=== PATIENT | male | born 1990 | race Caucasian/White ===

== ENCOUNTER 2017-12-13 02:37 | Outpatient (CLI) | payer BC | END 2017-12-13 23:59 | disposition home or self-care (01) | LOC: DIABETIC 02:37 | PROVIDERS: ATTEND Specialist | DX: E10.9 Type 1 diabetes mellitus without complications (principal) | CPT/HCPCS: G0108 ==

== ENCOUNTER 2018-01-11 01:54 | Outpatient (CLI) | payer BC | END 2018-01-11 23:59 | disposition home or self-care (01) | LOC: DIABETIC 01:54 | PROVIDERS: ATTEND Specialist | DX: E10.65 Type 1 diabetes mellitus with hyperglycemia (principal) | CPT/HCPCS: G0108 ==

== ENCOUNTER 2018-04-16 00:51 | Outpatient (CLI) | payer BC | END 2018-04-16 23:59 | disposition home or self-care (01) | LOC: DIABETIC 00:51 | PROVIDERS: ATTEND Specialist | DX: E10.65 Type 1 diabetes mellitus with hyperglycemia (principal) | CPT/HCPCS: G0108 ==

== ENCOUNTER 2019-06-19 14:32 | Emergency (ER) | payer BC ==
[~2019-06-19] VITALS: Ht 175.3 cm; Wt 104.0 kg
[2019-06-19 14:42] VITALS: BP 125/63
[2019-06-19] MEDS ORDERED: DOXYCYCLINE 100MG CAPSULE PO STA (15:31)
[2019-06-19] MEDS ORDERED: LIDOcaine 1% W/epiNEPHrine 1:200,000 10ml vial IJ ONE ×2 (15:35)
[2019-06-19] MEDS ORDERED: IBUP-1984 PO (15:38)
[2019-06-19] MEDS ORDERED: DOXY100C76 PO (15:38)
[2019-06-19] MEDS ORDERED: CIPR-259 PO (16:43)
[2019-06-19] MEDS ORDERED: METR500T PO (16:43)
== END 2019-06-19 17:01 | disposition home or self-care (01) ==
LOC: ER 14:33
DX: L03.315 Cellulitis of perineum (principal); E10.9 Type 1 diabetes mellitus without complications; Z79.899 Other long term (current) drug therapy
CPT/HCPCS: 99284

== ENCOUNTER 2019-07-02 03:38 | Inpatient (IN) | payer BC ==
[~2019-07-02] VITALS: Ht 177.8 cm; Wt 104.0 kg
[2019-07-02] MEDS ORDERED: normal saline 1000ml 1,000 ML IVB ONE (03:49)
[2019-07-02] MEDS ORDERED: NPH, human insulin isophane inj. SQ SCH (03:50)
[2019-07-02] MEDS ORDERED: insulin regular, human U-100 3ml vial - multi-dose SQ ONE (04:00)
[2019-07-02] MEDS ORDERED: insulin regular, human 10 units/0.1 ml syringe SQ ONE (04:00)
[2019-07-02] MEDS ORDERED: ondansetron/PF 4mg/2ml inj IV ONE (04:05)
[2019-07-02 04:14] LABS: BASOPHILS # (AUTO) 0.3 X10'3 (0-0.2); BASOPHILS % (AUTO) 1.3 % (0-1); EOSINOPHILS % (AUTO) 0.1 % (0-6); HEMOGLOBIN 16.6 g/dl (14.0-17.9); LYMPHOCYTES # (AUTO) 0.8 X10'3 (1.1-4.8); LYMPHOCYTES % (AUTO) 3.2 % (21-51); MEAN CORPUSCULAR HEMOGLOBIN 30.1 PG (27.0-31.0); MEAN CORPUSCULAR HGB CONC 33.9 g/dL (33.0-36.5); MEAN CORPUSCULAR VOLUME 88.8 FL (78-98); MEAN PLATELET VOLUME 8.2 FL (7.4-10.4); MONOCYTES # (AUTO) 0.7 X10'3 (0-0.9); MONOCYTES % (AUTO) 2.8 % (2-12); NEUTROPHILS % (AUTO) 92.6 % (42-75); PLATELET COUNT 496 X10'3 (140-440); RED BLOOD COUNT 5.52 X10'6 (4.70-6.10); RED CELL DISTRIBUTION WIDTH 13.3 % (11.5-14.5)
[2019-07-02 04:16] LABS: ABG BASE EXCESS -23.8 mmol/L (-2.0-3.0); ABG HCO3 4.2 mmol/L (22.0-26.0); ABG PCO2 (T) 14.5 mmHg (35.0-45.0); ABG PH (T) 7.078 (7.350-7.450); ABG PO2 (T) 121.6 mmHg (83-108); FCOHb 0.4 % (0.5-1.5); FMetHb 0.4 % (0.3-1.12); FO2Hb 97.2 % (94-100); PATIENT TEMPERATURE 36.7; TOTAL HEMOGLOBIN 15.1 G/dl (14.0-17.9)
[2019-07-02 04:21] LABS: PARTIAL THROMBOPLASTIN TIME 26 SECONDS (22-32)
[2019-07-02 04:23] LABS: WHITE BLOOD COUNT 25.9 X10'3 (4.5-11.0)
[2019-07-02] MEDS ORDERED: INSU100V11 SQ (04:24)
[2019-07-02] MEDS ORDERED: Insulin Reg/NS 100units/100mL 100 ML IV SCH (04:26)
[2019-07-02] MEDS ORDERED: potassium CL 20mEq in D5-1/2NS 1,000 ML IV PRN (04:26)
[2019-07-02] MEDS ORDERED: sodium bicarbonate (8.4%) inj. 100 MEQ in dextrose 5% water 500ml 500 ML IV PRN ×2 (04:26→06:07)
[2019-07-02] MEDS ORDERED: sodium bicarbonate (8.4%) inj. 50 MEQ in dextrose 5% water 500ml 250 ML IV PRN ×3 (04:26→06:07)
[2019-07-02] MEDS ORDERED: normal saline 1000ml 1,000 ML IV SCH ×2 (04:26→06:07)
[2019-07-02] MEDS ORDERED: potassium Cl 20 mEq SR tablet PO PRN ×7 (04:30→06:10)
[2019-07-02] MEDS ORDERED: potassium CL 10mEq/100ml bag 100 ML IV PRN ×6 (04:30→06:10)
[2019-07-02] MEDS ORDERED: insulin regular, human U-100 3ml vial - multi-dose IV PRN ×3 (04:30→06:10)
[2019-07-02] MEDS ORDERED: Neutra Phos packet PO PRN ×2 (04:30→04:45)
[2019-07-02] MEDS ORDERED: sodium phosphate inj. 15 MMOL in dextrose 5%-water 250 ML IV PRN ×3 (04:30→06:10)
[2019-07-02] MEDS ORDERED: sodium phosphate inj. 30 MMOL in dextrose 5%-water 250 ML IV PRN ×3 (04:30→06:10)
[2019-07-02 04:33] LABS: ALANINE AMINOTRANSFERASE 37 U/L (12-78); ALBUMIN 4.3 G/DL (3.4-5.0); ALKALINE PHOSPHATASE 115 IU/L (46-116); ANION GAP 31 (8-16); ASPARTATE AMINO TRANSFERASE 19 U/L (10-37); BILIRUBIN,TOTAL 0.8 MG/DL (0.1-1.0); BLOOD UREA NITROGEN 19 MG/DL (7-18); BUN/CREATININE RATIO 10.6 (5.4-32.0); CALCIUM 9.2 MG/DL (8.5-10.1); CHLORIDE 94 MMOL/L (99-107); CREATININE 1.79 MG/DL (0.60-1.10); POTASSIUM 5.3 MMOL/L (3.5-5.1); SODIUM 132 MMOL/L (135-145); TOTAL PROTEIN 8.5 G/DL (6.4-8.2); eGFR 45 ML/MIN
[2019-07-02 04:38] LABS: ETHANOL < 0.010 GM/DL (0.0-0.010); GLUCOSE 539 MG/DL (70-104); TOTAL CARBON DIOXIDE 6.9 MMOL/L (24-32)
[2019-07-02] MEDS ORDERED: proCHLORperazine 10 MG/2 ml inj IV ONE (04:45)
[2019-07-02 04:51] LABS: TOTAL CELLS COUNTED 100
[2019-07-02 04:53] LABS: PLATELET ESTIMATE INCREASED
[2019-07-02] MEDS: normal saline 1000ml 1,000 ML IV SCH ×2 (06:07→06:37)
[2019-07-02] MEDS: Insulin Reg/NS 100units/100mL 100 ML IV SCH ×2 (06:07→20:30)
[2019-07-02] MEDS ORDERED: magnesium 2GM in 50ml NS 50 ML IV PRN (06:10)
[2019-07-02] MEDS ORDERED: acetaminophen 325mg tablet PO PRN (06:10)
[2019-07-02] MEDS ORDERED: magnesium Cl slow-release 64mg tablet PO PRN (06:10)
[2019-07-02] MEDS ORDERED: magnesium 4gm in 100ml NS 100 ML IV PRN (06:10)
[2019-07-02] MEDS ORDERED: HYDROcodone/acetaminophen 5mg/325mg tablet PO PRN (06:10)
[2019-07-02] MEDS ORDERED: magnesium hydroxide 30ml (MOM) UD suspension PO PRN (06:10)
[2019-07-02] MEDS ORDERED: morphine 2 MG/ML inj. syringe IV PRN (06:10)
[2019-07-02] MEDS ORDERED: ondansetron/PF 4mg/2ml inj IV PRN (06:10)
[2019-07-02] MEDS ORDERED: mag hydrox/Alum hydrox/simeth 30ml oral suspension PO PRN (06:10)
[2019-07-02 06:16] LABS: COLOR,URINE YELLOW (Yellow); GLUCOSE, URINE >=1000 mg/dl (Neg); KETONES,URINE >=80 mg/dl (Neg); LEUKOCYTE ESTERASE ,URINE NEGATIVE (Neg); NITRITES, URINE NEGATIVE (Neg); OCCULT BLOOD,URINE SMALL (Neg); PH,URINE 5.5 (4.8-8.0); PROTEIN,URINE TRACE mg/dl (Neg); UROBILINOGEN,URINE 0.2 E.U/dL (0.2-1.0)
[2019-07-02 06:25] LABS: ALBUMIN 3.6 G/DL (3.4-5.0); BLOOD UREA NITROGEN 19 MG/DL (7-18); BUN/CREATININE RATIO 13.6 (5.4-32.0); CALCIUM 7.8 MG/DL (8.5-10.1); CHLORIDE 103 MMOL/L (99-107); GLUCOSE 413 MG/DL (70-104); PHOSPHORUS 3.9 MG/DL (2.3-4.5); POTASSIUM 5.3 MMOL/L (3.5-5.1); SODIUM 138 MMOL/L (135-145); eGFR 60 ML/MIN
[2019-07-02 06:29] LABS: ANION GAP 30 (8-16)
--- NOTE | 2019-07-02 06:29 | NUR ---
sbar to raul rn no questions or concerns after assuming care
[2019-07-02 06:30] LABS: TOTAL CARBON DIOXIDE < 5 MMOL/L (24-32)
--- NOTE | 2019-07-02 06:30 | NUR ---
Milad lennon in EDM - 07/02/19 at 0712 by GREGG Myxredlin 100 running as ordered @ q20h; Admit order dose scanned against running dose, started in ED.
--- NOTE | 2019-07-02 06:31 | NUR ---
Myxredlin 100 running as ordered @ q20h; Unable to scan Admit order dose to clear Emar against running dose, started in ED.
[2019-07-02 06:34] LABS: CLARITY,URINE SLIGHTLY CLOUDY (Clear); UA COLLECTION TYPE CLN CATCH MIDSTREAM
[2019-07-02 06:38] LABS: BACTERIA,URINE NONE SEEN /HPF (Neg); RBC,URINE NONE SEEN /HPF (0-2); SQUAMOUS EPITHELIAL CELL,UR NONE SEEN /LPF (FEW); WBC,URINE NONE SEEN /HPF (0-4)
--- NOTE | 2019-07-02 06:51 | NUR ---
belongings: glasses (w/ label on arm band), slippers, shorts, undies, shirt, cell phone (only). Insulin pump in place (turned off prior to assumption of care).
--- NOTE | 2019-07-02 07:30 | NUR ---
Assumed care of patient. Patient resting in bed comfortable. No needs at this time. Insulin drip infusing at 5units/hr and NS infusing at 250ml/hr. Patient's FSBG 309.
[2019-07-02 08:00] LABS: ABG BASE EXCESS -23.5 mmol/L (-2.0-3.0); ABG OXYGEN SATURATION 98.2 % (95-98); ABG PCO2 (T) 13.1 mmHg (35.0-45.0); ABG PH (T) 7.097 (7.350-7.450); ABG PO2 (T) 117.5 mmHg (83-108); ALLEN'S TEST POSITIVE; FCOHb 0.4 % (0.5-1.5); FMetHb 0.4 % (0.3-1.12); FO2Hb 97.4 % (94-100); PATIENT TEMPERATURE 36.7; TOTAL HEMOGLOBIN 15.2 G/dl (14.0-17.9)
[2019-07-02] MEDS: K and/or MAG REPLACEMENT MC SCH ×2 (08:00→20:00)
[2019-07-02] MEDS ORDERED: K and/or MAG REPLACEMENT MC SCH ×2 (08:00)
[2019-07-02] MEDS: enoxaparin 40mg/0.4ml syringe SUBCUT SCH (08:00)
[2019-07-02 09:49] LABS: ALBUMIN 3.6 G/DL (3.4-5.0); ANION GAP 24 (8-16); BLOOD UREA NITROGEN 17 MG/DL (7-18); BUN/CREATININE RATIO 12.1 (5.4-32.0); CALCIUM 7.9 MG/DL (8.5-10.1); CHLORIDE 107 MMOL/L (99-107); CREATININE 1.41 MG/DL (0.60-1.10); GLUCOSE 248 MG/DL (70-104); PHOSPHORUS 1.9 MG/DL (2.3-4.5); POTASSIUM 4.4 MMOL/L (3.5-5.1); SODIUM 138 MMOL/L (135-145); eGFR 59 ML/MIN
--- NOTE | 2019-07-02 09:51 | NUR ---
Critical lab: CO2 7.1. Notified primary VICKI Urban.
[2019-07-02 09:52] LABS: TOTAL CARBON DIOXIDE 7.1 MMOL/L (24-32)
[2019-07-02 10:16] VITALS: BP 139/63
--- NOTE | 2019-07-02 10:33 | NUR ---
Page sent to Dr. Meraz to notify of critical co2 level. PAGER ID: [phone] MESSAGE: [id number] Héctor Garcia- Critical C02 7.1- Pt is on DKA protocol. Thanks, Rajni farias [phone]
[2019-07-02] MEDS: potassium CL 20mEq in D5-1/2NS 1,000 ML IV PRN ×3 (10:59→23:36)
[2019-07-02 13:51] LABS: ALBUMIN 3.8 G/DL (3.4-5.0); ANION GAP 19 (8-16); BLOOD UREA NITROGEN 13 MG/DL (7-18); CALCIUM 8.2 MG/DL (8.5-10.1); CHLORIDE 108 MMOL/L (99-107); GLUCOSE 201 MG/DL (70-104); SODIUM 140 MMOL/L (135-145); eGFR 65 ML/MIN
[2019-07-02 13:53] LABS: TOTAL CARBON DIOXIDE 13.1 MMOL/L (24-32)
--- NOTE | 2019-07-02 13:58 | NUR ---
Page sent to Dr. Meraz regarding critical labs. PAGER ID: [phone] MESSAGE: re [id number] Brandon Garcia: Critical Phos 1.0 and C02 13.1. Pt on DKA protocol. Please advise on phos level. Rajni Clark [phone] Addendum: 07/02/19 at 1519 by Rajni Velez RN order to replace phos PO
[2019-07-02] MEDS: Neutra Phos packet PO PRN ×2 (14:37→22:32)
[2019-07-02 15:00] VITALS: BP 131/68
--- NOTE | 2019-07-02 15:06 | NUR ---
Dr. Meraz notified of open wound to simba rectal area PAGER ID: [phone] MESSAGE: re [phone] Héctor Garcia: FYI Pt has open area to simba/rectal area-possible abscess that opened. line repairer tower already consulted. Thanks, Rajni Rangel [phone]
[2019-07-02] MEDS: piperacillin/tazo 4.5gm/100ml 100 ML IV SCH ×2 (17:00→23:37)
[2019-07-02 17:32] LABS: ALBUMIN 3.3 G/DL (3.4-5.0); ANION GAP 13 (8-16); BLOOD UREA NITROGEN 12 MG/DL (7-18); BUN/CREATININE RATIO 9.4 (5.4-32.0); CHLORIDE 109 MMOL/L (99-107); CREATININE 1.28 MG/DL (0.60-1.10); GLUCOSE 184 MG/DL (70-104); MAGNESIUM 1.8 MG/DL (1.5-2.4); POTASSIUM 3.8 MMOL/L (3.5-5.1); SODIUM 139 MMOL/L (135-145); TOTAL CARBON DIOXIDE 17.2 MMOL/L (24-32); eGFR 66 ML/MIN
--- NOTE | 2019-07-02 17:50 | NUR ---
DM consult, patient h/o type 1 DM for 20 years admitted with DKA, elevated BG of 529 mg/dl, has insulin pump, A1c is 7.9. Per H&P reporting nausea and vomiting for past 24 hours prior to admission. Patient seen at bedside for verbal DM education. Patient was unable to concentrate as was very tired at time of bedside visit. Given written DM education handout with DM survival skills handout along with referral to outpatient DM education class on monday (currently on hold) with contact information. Pt will need DM reinforcement. Recommend: 1. advance diet as medically indicated to carb controlled 2. Weight per rx Addendum: 07/02/19 at [address] Amended: Links added.
[2019-07-02 17:52] LABS: PHOSPHORUS 1.1 MG/DL (2.3-4.5)
--- NOTE | 2019-07-02 17:53 | NUR ---
Critical phos paged to Dr. Meraz. PAGER ID: [phone] MESSAGE: [phone] Héctor Garcia: Critical phos 1.1 (previously 1.0. Currently replacing PO. Thanks, Rajni farias [phone]
[2019-07-02 18:30] VITALS: BP 134/83
--- NOTE | 2019-07-02 18:45 | NUR ---
Problems reprioritized. Patient report given, questions answered & plan of care reviewed with VICKI Curtis.
--- NOTE | 2019-07-02 20:15 | NUR ---
Patient in room PCU 3014. I have received report from Alisa COHEN and had the opportunity to ask questions and assume patient care.
[2019-07-02 22:22] LABS: ALBUMIN 3.2 G/DL (3.4-5.0); ANION GAP 8 (8-16); BLOOD UREA NITROGEN 11 MG/DL (7-18); BUN/CREATININE RATIO 8.7 (5.4-32.0); CALCIUM 8.2 MG/DL (8.5-10.1); CHLORIDE 110 MMOL/L (99-107); CREATININE 1.26 MG/DL (0.60-1.10); GLUCOSE 156 MG/DL (70-104); POTASSIUM 3.8 MMOL/L (3.5-5.1); SODIUM 139 MMOL/L (135-145); TOTAL CARBON DIOXIDE 20.7 MMOL/L (24-32); eGFR 67 ML/MIN
--- NOTE | 2019-07-02 22:33 | NUR ---
Remington RN was at a [facility], received report from lora COHEN and gave report to Remington RN when he arrived
[2019-07-02 22:39] VITALS: BP 146/82
[2019-07-03 01:59] LABS: ALBUMIN 3.1 G/DL (3.4-5.0); ANION GAP 7 (8-16); BLOOD UREA NITROGEN 11 MG/DL (7-18); BUN/CREATININE RATIO 8.7 (5.4-32.0); CALCIUM 8.1 MG/DL (8.5-10.1); CHLORIDE 111 MMOL/L (99-107); CHOL/HDL RATIO 4.4 (0.00-4.99); CHOLESTEROL 157 MG/DL (0-200); CREATININE 1.26 MG/DL (0.60-1.10); GLUCOSE 167 MG/DL (70-104); HDL CHOLESTEROL 36 MG/DL (35-60); LDL CHOLESTEROL 104 MG/DL (50-100); MAGNESIUM 1.8 MG/DL (1.5-2.4); PHOSPHORUS 1.4 MG/DL (2.3-4.5); POTASSIUM 3.4 MMOL/L (3.5-5.1); SODIUM 139 MMOL/L (135-145); TOTAL CARBON DIOXIDE 20.8 MMOL/L (24-32); TRIGLYCERIDES 84 MG/DL (20-135); eGFR 67 ML/MIN
[2019-07-03 02:00] VITALS: BP 150/82
[2019-07-03 02:12] LABS: BASOPHILS # (AUTO) 0.1 X10'3 (0-0.2); EOSINOPHILS % (AUTO) 0.2 % (0-6); HEMATOCRIT 38.5 % (42.0-52.0); HEMOGLOBIN 13.5 g/dl (14.0-17.9); LYMPHOCYTES # (AUTO) 1.9 X10'3 (1.1-4.8); LYMPHOCYTES % (AUTO) 12.8 % (21-51); MEAN CORPUSCULAR HEMOGLOBIN 29.3 PG (27.0-31.0); MEAN CORPUSCULAR HGB CONC 35.1 g/dL (33.0-36.5); MEAN CORPUSCULAR VOLUME 83.4 FL (78-98); MEAN PLATELET VOLUME 7.4 FL (7.4-10.4); MONOCYTES % (AUTO) 6.8 % (2-12); NEUTROPHILS # (AUTO) 11.6 X10'3 (1.8-7.7); NEUTROPHILS % (AUTO) 79.2 % (42-75); PLATELET COUNT 282 X10'3 (140-440); RED BLOOD COUNT 4.62 X10'6 (4.70-6.10); RED CELL DISTRIBUTION WIDTH 13.1 % (11.5-14.5); WHITE BLOOD COUNT 14.7 X10'3 (4.5-11.0)
[2019-07-03] MEDS: potassium CL 20mEq in D5-1/2NS 1,000 ML IV PRN (03:30)
[2019-07-03 06:00] VITALS: BP 135/87
--- NOTE | 2019-07-03 06:00 | NUR ---
Patient in room PCU 3014. I have received report from Remington RN and had the opportunity to ask questions and assume patient care.
--- NOTE | 2019-07-03 06:10 | NUR ---
Problems reprioritized. Patient report given, questions answered & plan of care reviewed with Ruben COHEN.
[2019-07-03 07:23] LABS: ALBUMIN 3.1 G/DL (3.4-5.0); ANION GAP 10 (8-16); BLOOD UREA NITROGEN 9 MG/DL (7-18); BUN/CREATININE RATIO 7.6 (5.4-32.0); CALCIUM 8.3 MG/DL (8.5-10.1); CHLORIDE 110 MMOL/L (99-107); CREATININE 1.19 MG/DL (0.60-1.10); GLUCOSE 189 MG/DL (70-104); POTASSIUM 3.3 MMOL/L (3.5-5.1); SODIUM 140 MMOL/L (135-145); eGFR 72 ML/MIN
[2019-07-03] MEDS ORDERED: dextrose 50%-water 50ml dispensing syringe IV PRN ×2 (07:35)
[2019-07-03] MEDS ORDERED: dextrose ORAL solution 15 GM/59 ML bottle PO PRN ×2 (07:35)
[2019-07-03] MEDS ORDERED: glucagon, human recombinant 1mg kit SUBCUT PRN (07:35)
[2019-07-03] MEDS: piperacillin/tazo 4.5gm/100ml 100 ML IV SCH ×2 (07:46→16:22)
[2019-07-03] MEDS: enoxaparin 40mg/0.4ml syringe SUBCUT SCH (07:47)
[2019-07-03] MEDS: K and/or MAG REPLACEMENT MC SCH ×2 (08:58→22:43)
[2019-07-03 11:00] VITALS: BP 137/81
[2019-07-03 12:07] LABS: ALANINE AMINOTRANSFERASE 23 U/L (12-78); ALBUMIN 2.9 G/DL (3.4-5.0); ALBUMIN/GLOBULIN RATIO 0.9 (1.1-1.5); ALKALINE PHOSPHATASE 70 IU/L (46-116); ANION GAP 7 (8-16); ASPARTATE AMINO TRANSFERASE 15 U/L (10-37); BILIRUBIN,TOTAL 0.8 MG/DL (0.1-1.0); BLOOD UREA NITROGEN 8 MG/DL (7-18); BUN/CREATININE RATIO 7.4 (5.4-32.0); CHLORIDE 109 MMOL/L (99-107); CREATININE 1.08 MG/DL (0.60-1.10); GLUCOSE 164 MG/DL (70-104); MAGNESIUM 1.7 MG/DL (1.5-2.4); PHOSPHORUS 1.3 MG/DL (2.3-4.5); SODIUM 137 MMOL/L (135-145); TOTAL CARBON DIOXIDE 20.8 MMOL/L (24-32); eGFR 80 ML/MIN
--- NOTE | 2019-07-03 12:10 | NUR ---
DM Consult: Pt seen by DALTON for f/u DM ed reinforcement. Pt declines verbal ed at this time and reports good Glu control prior to moving insulin pump site 2 days ago. Pt reports following pump removal it seemed basal was not working and had to give larger insulin doses which were still ineffective. RD encouraged pt to f/u w/ PCP regarding new pump site and any adjustments that may be necessary. RD encouraged pt to review DM ed handout and contact dietitians office if further questions following discharge. Recommend: 1. continue carb controlled diet 2. bowel care as needed 3. Weight per rx Addendum: 07/03/19 at [address] Amended: Links added.
--- NOTE | 2019-07-03 12:25 | NUR ---
PAGER ID: [phone] MESSAGE: Re: Héctor Garcia, Room: [facility]. Critical Potassium 3.0 -[facility][id number] Dr. Meraz paged concerning Pt's critical low potassium 3.0
[2019-07-03] MEDS: potassium Cl 20 mEq SR tablet PO PRN ×2 (12:39→17:23)
[2019-07-03] MEDS: Neutra Phos packet PO PRN ×2 (12:39→19:57)
[2019-07-03] MEDS: insulin Lispro (HumaLOG) vial - multi-dose SQ SCH ×3 (12:45→22:03)
--- NOTE | 2019-07-03 13:15 | NUR ---
Pt eating lunch. Insulin drip turned off at 1315 and 1 unit of insulin given at 1245. Will continue to monitor Pt.
[2019-07-03 15:00] VITALS: BP 145/85
[2019-07-03 18:00] VITALS: BP 128/85
--- NOTE | 2019-07-03 18:45 | NUR ---
Problems reprioritized. Patient report given, questions answered & plan of care reviewed with Alisa COHEN.
[2019-07-03 18:49] LABS: ANION GAP 11 (8-16); BLOOD UREA NITROGEN 8 MG/DL (7-18); BUN/CREATININE RATIO 7.4 (5.4-32.0); CALCIUM 8.2 MG/DL (8.5-10.1); CHLORIDE 101 MMOL/L (99-107); CREATININE 1.08 MG/DL (0.60-1.10); GLUCOSE 317 MG/DL (70-104); POTASSIUM 3.8 MMOL/L (3.5-5.1); SODIUM 132 MMOL/L (135-145); TOTAL CARBON DIOXIDE 20.5 MMOL/L (24-32); eGFR 80 ML/MIN
--- NOTE | 2019-07-03 19:01 | NUR ---
Patient in room PCU 3014. I have received report from Reba COHEN and had the opportunity to ask questions and assume patient care.
[2019-07-03] MEDS: lactobacillus rhamnosus 10,000 MMU CELLS/CAPSULE PO SCH (19:57)
[2019-07-03] MEDS ORDERED: insulin glargine (Lantus) pen - multi-dose SQ SCH (21:00)
[2019-07-03 22:00] VITALS: BP 145/85
[2019-07-04] MEDS: piperacillin/tazo 4.5gm/100ml 100 ML IV SCH ×2 (00:36→07:33)
[2019-07-04 02:30] VITALS: BP 133/81
[2019-07-04 05:19] LABS: ALBUMIN 2.9 G/DL (3.4-5.0); ANION GAP 12 (8-16); BLOOD UREA NITROGEN 9 MG/DL (7-18); BUN/CREATININE RATIO 8.9 (5.4-32.0); CALCIUM 8.2 MG/DL (8.5-10.1); CHLORIDE 101 MMOL/L (99-107); CREATININE 1.01 MG/DL (0.60-1.10); GLUCOSE 308 MG/DL (70-104); MAGNESIUM 1.6 MG/DL (1.5-2.4); PHOSPHORUS 2.4 MG/DL (2.3-4.5); POTASSIUM 4.3 MMOL/L (3.5-5.1); SODIUM 134 MMOL/L (135-145); TOTAL CARBON DIOXIDE 20.6 MMOL/L (24-32); eGFR 87 ML/MIN
[2019-07-04 06:00] VITALS: BP 127/68
[2019-07-04 06:04] LABS: BASOPHILS % (AUTO) 0.4 % (0-1); EOSINOPHILS % (AUTO) 0.2 % (0-6); HEMATOCRIT 39.4 % (42.0-52.0); HEMOGLOBIN 14.1 g/dl (14.0-17.9); LYMPHOCYTES % (AUTO) 23.6 % (21-51); MEAN CORPUSCULAR HEMOGLOBIN 29.8 PG (27.0-31.0); MEAN CORPUSCULAR HGB CONC 35.7 g/dL (33.0-36.5); MEAN CORPUSCULAR VOLUME 83.5 FL (78-98); MEAN PLATELET VOLUME 8.1 FL (7.4-10.4); MONOCYTES # (AUTO) 0.5 X10'3 (0-0.9); MONOCYTES % (AUTO) 6.3 % (2-12); NEUTROPHILS # (AUTO) 5.8 X10'3 (1.8-7.7); NEUTROPHILS % (AUTO) 69.5 % (42-75); PLATELET COUNT 176 X10'3 (140-440); RED BLOOD COUNT 4.72 X10'6 (4.70-6.10); RED CELL DISTRIBUTION WIDTH 12.7 % (11.5-14.5); WHITE BLOOD COUNT 8.3 X10'3 (4.5-11.0)
--- NOTE | 2019-07-04 06:08 | NUR ---
Problems reprioritized. Patient report given, questions answered & plan of care reviewed with Leslie COHEN.
--- NOTE | 2019-07-04 06:37 | NUR ---
Patient in room PCU 3014. I have received report from Alisa COHEN and had the opportunity to ask questions and assume patient care.
[2019-07-04] MEDS: lactobacillus rhamnosus 10,000 MMU CELLS/CAPSULE PO SCH (07:32)
[2019-07-04] MEDS: enoxaparin 40mg/0.4ml syringe SUBCUT SCH (07:33)
[2019-07-04] MEDS: K and/or MAG REPLACEMENT MC SCH (08:00)
[2019-07-04] MEDS: insulin Lispro (HumaLOG) vial - multi-dose SQ SCH ×4 (08:22→12:28)
--- NOTE | 2019-07-04 08:43 | NUR ---
PAGER ID: [phone] MESSAGE: [phone] Héctor Garcia: Pt has insulin pump but does not have insulin left, has supplies at home and will be able to turn it on once discharged. thanks garland [phone]
--- NOTE | 2019-07-04 09:44 | NUR ---
PAGER ID: [phone] MESSAGE: [phone] Héctor Garcia: I have pt's insulin settings and will be covering him hourly until blood glucose is more controlled, I will keep you updated. thanks garland
[2019-07-04] MEDS ORDERED: levoFLOXACIN 750MG TABLET PO SCH (11:00)
[2019-07-04] MEDS ORDERED: LEVO750T46 PO (11:41)
--- NOTE | 2019-07-04 14:36 | NUR ---
Pt is stable for discharge per md orders, discharge instructions reviewed w/ patient and all questions answered, new medication prescriptions called in to [facility], piv dc'ed and clean dry dressing in place, tele monitor removed and returned, pt discharges to home @ 1305, wheeled down to lobby with hospital staff to sister in private vehicle, all [facility] w/ pt at time of discharge
== END 2019-07-04 13:05 | disposition home health service (06) | DRG 871 ==
LOC: ER 03:39 → ED HOLD 06:07 → PCU 3S 09:44
PROVIDERS: ADMIT Internal Medicine; ATTEND Family Medicine
DX: A41.9 Sepsis, unspecified organism (principal); E10.10 Type 1 diabetes mellitus with ketoacidosis without coma; N17.0 Acute kidney failure with tubular necrosis; E87.1 Hypo-osmolality and hyponatremia; K61.1 Rectal abscess; E86.0 Dehydration; Z96.41 Presence of insulin pump (external) (internal); E83.39 Other disorders of phosphorus metabolism; E87.5 Hyperkalemia; E87.6 Hypokalemia; F17.210 Nicotine dependence, cigarettes, uncomplicated; Z79.4 Long term (current) use of insulin; Z83.3 Family history of diabetes mellitus
CPT/HCPCS: 36415; 36600; 76937; 80048; 80053; 80061; 80320; 81001; 82803; 82948; 83036; 83605; 83735; 84100; 84132; 85018; 85025; 85730; 87040; 87070; 87075; 87077; 87081; 87102; 87186; 93005; G0378; J0780; J1650; J1815; J2405; J2543; J3480; J7030